=== PATIENT | male | born 1975 | race Two or more races ===

== ENCOUNTER 2020-09-28 07:00 | Day surgery (SDC) | payer OTHER | END 2020-09-28 12:50 | disposition home or self-care (01) | LOC: AMB-ENDOS 07:00 | PROVIDERS: ATTEND Colon & Rectal Surgery | DX: K62.1 Rectal polyp (principal); Z20.828 Contact with and (suspected) exposure to other viral communicable diseases; Z12.11 Encounter for screening for malignant neoplasm of colon; K64.8 Other hemorrhoids ==